=== PATIENT | male | born 1945 | race Caucasian/White ===

== ENCOUNTER → 2020-04-15 | Outpatient (CLI) | payer OTHER ==
[~2020-04-15] MED LIST: ALEVE220 M1 PO; ALOGLIPTIN25 MG PO; ASA81BEC PO; HYDROCHLOROTHIA25 M1 PO; LIPITOR 20 MG T20 M1 PO; LISINOPRIL40 MG PO; MECLIZINE HCL12.5 MG PO
== END | disposition home or self-care (01) ==
LOC: M.PC 04-13 08:10
PROVIDERS: ATTEND Physical Medicine & Rehabilitation
DX: M17.12 Unilateral primary osteoarthritis, left knee (principal); I10 Essential (primary) hypertension; E11.9 Type 2 diabetes mellitus without complications; E78.5 Hyperlipidemia, unspecified; E66.9 Obesity, unspecified; Z85.828 Personal history of other malignant neoplasm of skin; Z79.899 Other long term (current) drug therapy; Z98.890 Other specified postprocedural states

== ENCOUNTER → 2020-04-29 | Outpatient (CLI) | payer OTHER | LOC: M.PC 08:00 | PROVIDERS: ATTEND Physical Medicine & Rehabilitation | DX: M17.12 Unilateral primary osteoarthritis, left knee (principal) ==

== ENCOUNTER → 2020-05-21 | Outpatient (CLI) | payer OTHER | LOC: M.MRI 08:30 | PROVIDERS: ATTEND Physical Medicine & Rehabilitation | DX: S83.402A Sprain of unspecified collateral ligament of left knee, initial encounter (principal); M25.862 Other specified joint disorders, left knee; X58.XXXA Exposure to other specified factors, initial encounter; Y93.89 Activity, other specified; Y92.89 Other specified places as the place of occurrence of the external cause; Y99.8 Other external cause status ==

== ENCOUNTER → 2020-06-03 | Outpatient (CLI) | payer OTHER | END | disposition home or self-care (01) | LOC: M.PC 07:58 | PROVIDERS: ATTEND Physical Medicine & Rehabilitation | DX: M25.562 Pain in left knee (principal); M17.12 Unilateral primary osteoarthritis, left knee; I10 Essential (primary) hypertension; E78.5 Hyperlipidemia, unspecified; E11.9 Type 2 diabetes mellitus without complications; Z98.890 Other specified postprocedural states; Z79.899 Other long term (current) drug therapy ==

== ENCOUNTER → 2020-06-10 | Outpatient (CLI) | payer OTHER | END | disposition home or self-care (01) | LOC: M.PC 08:23 | PROVIDERS: ATTEND Physical Medicine & Rehabilitation | DX: M25.562 Pain in left knee (principal); M17.12 Unilateral primary osteoarthritis, left knee; I10 Essential (primary) hypertension; E11.9 Type 2 diabetes mellitus without complications; E78.5 Hyperlipidemia, unspecified; Z98.890 Other specified postprocedural states; Z79.899 Other long term (current) drug therapy; Z86.010 Personal history of colon polyps ==

== ENCOUNTER → 2020-06-17 | Outpatient (CLI) | payer OTHER | END | disposition home or self-care (01) | LOC: M.PC 08:08 | PROVIDERS: ATTEND Physical Medicine & Rehabilitation | DX: M17.12 Unilateral primary osteoarthritis, left knee (principal); M25.562 Pain in left knee; I10 Essential (primary) hypertension; E78.5 Hyperlipidemia, unspecified; E11.9 Type 2 diabetes mellitus without complications; Z98.890 Other specified postprocedural states; Z79.899 Other long term (current) drug therapy; Z86.010 Personal history of colon polyps; Z88.8 Allergy status to other drugs, medicaments and biological substances ==